=== PATIENT | female | born 1975 | race African-American/Black ===

== ENCOUNTER → 2017-08-23 | Outpatient (CLI) | payer OTHER | LOC: RAD 14:38 | DX: I86.8 Varicose veins of other specified sites (principal); M25.662 Stiffness of left knee, not elsewhere classified; M25.661 Stiffness of right knee, not elsewhere classified ==

== ENCOUNTER → 2021-06-23 | Outpatient (CLI) | payer BC | LOC: BC 06-17 10:41 | PROVIDERS: ATTEND Neuromusculoskeletal Medicine & OMM | DX: Z12.31 Encounter for screening mammogram for malignant neoplasm of breast (principal) ==